=== PATIENT | female | born 1950 | race Caucasian/White ===

== ENCOUNTER → 2016-07-12 08:38 | Outpatient (CLI) | payer MEDICARE, OTHER ==
[2016-06-21 12:51] VITALS: BMI 21.8
[~2016-07-12 08:38] MED LIST: AMBIEN10 MG PO; AMITRIPTYLINE100 MG PO; CELEXA10 MG PO; ELAVIL75 MG PO; FIORINAL W/CODE1 CA1 PO; FIORINAL/CODEIN1 CAP; GABAPENTIN100 MG PO; INDERAL LA80 MG PO; NEURONTIN 300300 MG PO; NITROSTAT0.4 MG SL; NORCO 10/325 TA1 TA1 PO; PHENERGAN25 M1 PO; PLAVIX75 MG PO; PREVACID30 MG PO; SOMA350 MG PO; VALIUM5 MG PO; VITAMIN B-121000 MC3 INJ; ZESTRIL10 MG PO; ZOCOR40 MG PO; ZOFRAN4 MG PO
== END | disposition home or self-care (01) ==
LOC: D.CT 07-05 09:00
DX: I65.29 Occlusion and stenosis of unspecified carotid artery (principal)

== ENCOUNTER → 2016-09-10 16:31 | Outpatient (CLI) | payer MEDICARE, OTHER ==
[2016-06-21 12:51] VITALS: BMI 21.8
[2016-09-10 17:54] LABS: CHOL - HDL RATIO 3.4 ratio (2.3-4.1); LDL-HDL RATIO 1.8 ratio (1.5-3.5)
== END | disposition home or self-care (01) ==
LOC: D.LABREF 16:31
PROVIDERS: Internal Medicine Interventional Cardiology
DX: I25.10 Atherosclerotic heart disease of native coronary artery without angina pectoris (principal)

== ENCOUNTER → 2017-05-28 07:07 | Outpatient (CLI) | payer MEDICARE, OTHER ==
[~2017-05-28] VITALS: Ht 162.6 cm; Wt 49.5 kg
--- NOTE | ~2017-05-28 | HEMODYNAMI ---
PATIENT:ROCHELLE ALCANTARA MEDICAL RECORD: [id number] : 48 LOCATION:[facility] ADMISSION DATE: 05/28/17 Generatedon:05/28/201711:06 Patient name: ROCHELLE ALCANTARA Patient #: [id number] N: [id number] : 1950 Date of study: 05/28/2017 Page: Of Hemodynamic Procedure Report Patient Data Patient Demographics Procedure consent was obtained First Name: ROCHELLE Gender: Female Last Name: MARICRUZ : 1950 Middle Initial: A Age: 66 year(s) Patient #: [id number] Race: SSN: [id number] Additional ID: [id number] Contact details [address]: [address] [place] [address] State: [place] City: [place] Zip code: [address] Past Medical History Allergies Allergen Reaction Date Comments Reported Other allergy 06/20/2016 PCN,Imitrex Other allergy 06/21/2016 PCN, sumatriptan Other allergy 05/28/2017 PCN, Sumatriptan Admission Admission Data Admission Date: 05/28/2017 Admission Time: 7:07 Admit Source: Other Height (in.): 64 BSA: 1.52 (m2) Height (cm.): 162.56 BMI: 18.92 (kg/m2) Weight (lbs.): 110.23 Weight (kg.): 50 Lab Results Lab Result Date: 05/28/2017 Lab Result Time: 8:00 Biochemistry Name Units Result Min Max BUN mg/dl 10 --(-*--)-- 7 18 Creatinine mg/dl 0.9 --(-*--)-- 0.6 1.3 CBC Name Units Result Min Max Hematocrit % 39.1 -*(----)-- 42 54 Hemoglobin g/dl 12.6 -*(----)-- 13.5 17.5 Procedure Procedure Types Cath Procedure Diagnostic Procedure LHC LHC w/Coronaries PCI Procedure Coronary Stent Coronary Stent Initial Miscellaneous Procedures Moderate Sedation up to 30 minutes Procedure Description Procedure Date Procedure Date: 05/28/2017 Procedure Start Time: 10:31 Procedure End Time: 10:49 Procedure Staff Name Function Elsi Street RT Scrub Cheri Chin RN Nurse Jomar Beckman MD Performing Physician Vik Alaniz RT Monitor Procedure Data Cath Procedure Fluoroscopy Diagnostic fluoroscopy Total fluoroscopy Time: 4.5 time: 4.5 min min Diagnostic fluoroscopy Total fluoroscopy dose: 249 dose: 249 mGy mGy Contrast Material Contrast Material Type Amount (ml) Isovue 300 119 Entry Location Entry Primary Successful Side Size Upsize Upsize Entry Closure Succes sful Closure Location (Fr) 1 (Fr) 2 (Fr) Remarks Device Remarks Femoral Right 5 Fr 6 Fr Exoseal artery Short Estimated blood loss: 10 ml Diagnostic catheters Device Type Used For End Catheter Placement Cordis 5Fr Pigtail Procedure Catheter (MP) Cordis 5Fr JL 4.0 Procedure Catheter (MP) Cordis 5Fr 3DRC Catheter Procedure (MP) Procedure Complications No complications Procedure Medications Medication Administration Route Dosage Oxygen NC 2 l/min Lidocaine 2% added to field 20 Heparin Flush Bag added to field 2 bags (1000units/500ml NS) 0.9% NaCl I.V. 100 ml/hr Versed I.V. 1 mg Fentanyl I.V. 50 mcg Versed I.V. 1 mg Fentanyl I.V. 50 mcg Heparin Bolus I.V. 4000 units Versed I.V. 0.5 mg Fentanyl I.V. 25 mcg Plavix P.O. 75 mg Zofran I.V. 4 mg Hemodynamics Rest BSA: 1.52 (m2) HGB: 12.6 (g/dl) O2 Consumption: Estimated: 137.13 (ml/min) O2 Co nsumption indexed: Estimated:90.22 (ml/min/m) Heart Rate: 63 (bpm) Pressure Samples Time Site Value (mmHg) Purpose Heart Use Rate(bpm) 10:33 LV 100/11,21 Snapshot 59 10:33 LV 107/8,15 Snapshot 58 Snapshots Pre Cath Intra NCS Post Cath Vital Signs Time Heart Resp SPO2 etCO2 NIBP Rhythm Pain Sedation Rate (ipm) (%) (mmHg) (mmHg) Status Level (bpm) 10:25:22 60 17 100 35.9 127/57(89) NSR 0 (11) 10(A) , No pain 10:29:33 56 16 99 0 104/57(75) NSR 0 (11) 10(A) , No pain 10:33:41 58 18 98 35.2 103/46(67) NSR 0 (11) 9(A) , No pain 10:37:47 61 15 93 0 98/43(69) NSR 0 (11) 9(A) , No pain 10:41:51 61 15 94 0 100/44(82) NSR 0 (11) 9(A) , No pain 10:45:54 64 16 95 0 97/50(73) NSR 0 (11) 9(A) , No pain 10:49:40 63 16 95 0 108/49(81) NSR 0 (11) 10(A) , No pain Medications Time Medication Route Dose Verified Delivered Reason Notes Effectiveness by by 10:24:17 Oxygen NC 2 Jomar Buffie used for l/min Rk Chin RN procedure 10:24:22 Lidocaine 2% added 20ml Jomar Jomar for local to vial Rk Beckman MD anesthetic field 10:24:26 Heparin Flush added 2 Jomar Jomar used for Bag to bags Rk Beckman MD procedure (1000units/500ml field NS) 10:24:35 0.9% NaCl I.V. 100 Jomar Buffie Per physician ml/hr Rk Chin RN 10:26:49 Versed I.V. 1 mg Jomar Buffie for sedation Rk Chin RN 10:26:55 Fentanyl I.V. 50 Jomar Buffie for sedation mcg Rk Chin RN 10:30:13 Versed I.V. 1 mg Jomar Buffie for sedation Rk Chin RN 10:30:17 Fentanyl I.V. 50 Jomar Buffie for sedation mcg Rk Chin RN 10:39:17 Heparin Bolus I.V. 4000 Jomar Buffie for verifi ed units Rk Chin RN anticoagulation with dr beckman 10:43:21 Versed I.V. 0.5 Jomar Buffie for sedation mg Rk Chin RN 10:43:25 Fentanyl I.V. 25 Jomar Buffie for sedation mcg Rk Chin RN 10:48:49 Plavix P.O. 75 mg Jomar Alonzo for Rk Chin RN antiplatelet therapy 11:05:44 Zofran I.V. 4 mg Jomar Alonoz nausea Rk Chin independent marketing consultant Log Time Note 10:07:57 Informed consent obtained and on chart 10:08:00 Admit Source: Other 10:08:13 Diagnostic Cath status Elective 10:08:[address] RT(R) sent for patient. Start room use. 10:08:15 Time tracking: Regular hours 10:08:18 Plan of Care:Hemodynamics will remain stable., Cardiac rhythm will remain stable., Comfort level will be maintained., Respiratory function will remain adequate., Patient/ family verbilizes understanding of procedure., Procedure tolerated without complication., Recovers from procedure without complications.. 10:08:31 H&P Date Dictated: 05/16/2017 Within 30 days and on chart., H&P Addendum completed by physician on day of procedure. (MUST COMPLETE FOR ALL OUTPATIENTS). 10:09:15 Lab Result : Hemoglobin 12.6 g/dl 10::15 Lab Result : Hematocrit 39.1 % 10::15 Lab Result : BUN 10 mg/dl 10::15 Lab Result : Creatinine 0.9 mg/dl 10:09:24 Patient Weight : 110.23 lbs 10:09:27 Patient Height : 64 inches 10:13:02 Patient received from Pre/Post Procedure Room to CCL 2 Alert and oriented. Tansferred to table in Supine position. 10:13:03 Warm blankets applied, and jaswant hugger turned on for patient comfort. 10:13:04 Correct patient and procedure confirmed by team. 10:13:05 ECG and BP/O2 sat monitors applied to patient. 10:13:08 Pre-op teaching completed and patient verbalized understanding. 10:13:08 Pre-procedure instructions explained to patient. 10:13:09 Family in waiting room. 10:13:19 Patient NPO since Midnight. 10:13:41 Patient allergic to Other allergyPCN, Sumatriptan 10:13:43 Is the patient allergic to Iodine/contrast media? No. 10:17:55 Was the patient premedicated? No 10:17:56 Is patient on blood thinner?Yes 10:17:58 ACC The patient was administered the following blood thiners within the last 24 hours: ACCPlavix 10:18:00 Patient diabetic? No. 10:18:02 Previous problem with sedation/anesthesia? No ? 10:18:04 Snore? No 10:18:05 Sleep apnea? No 10:18:06 Deviated septum? No 10:18:08 Opens mouth fully? Yes 10:18:10 Sticks out tongue? Yes 10:18:16 Airway obstruction? Yes copd 10:23:35 Pre procedure: right dorsailis pedis pulse 2+ Normal; easily identifiable; not easily obliterated 10:23:38 Patient pain scale 0/10 ?. 10:23:46 IV patent on arrival in left hand with 0.9% NaCl at [facility]. 10:23:49 Lab results completed and on chart. 10:23:51 Right groin area was prepped with chlora-prep and draped in sterile fashion 10:23:53 Sharps counted by scrub and verified by R.N. 10:23:53 Alarms reviewed by R. N. 10:23:55 Use device set Femoral Dx 10:23:56 Tegaderm 4 x 4 opened to sterile field. 10:23:57 Acist Manifold opened to sterile field. 10:23:57 Acist Hand Control opened to sterile field. 10:23:58 Acist Syringe opened to sterile field. 10:23:59 Medline Cath Pack opened to sterile field. 10:23:59 Bag Decanter opened to sterile field. 10:24:00 [place] 260cm J .035 wire opened to sterile field. 10:24:00 Terumo 5Fr [place] Sheath opened to sterile field. 10:24:01 Diagnostic Infinity 5Fr Multipack catheter opened to sterile field. 10:24:05 Vital chart was started 10:24:06 Baseline sample Acquired. 10:24:10 Rhythm: sinus rhythm 10:24:11 Full Disclosure recording started 10:24:17 Oxygen 2 l/min NC was administered by Cheri Chin RN; used for procedure; 10:24:21 --------ALL STOP TIME OUT------ 10:24:21 Physician arrived 10:24:22 Final Timeout: patient, procedure, and site verified with staff and physician. All members of the team are in agreement. 10:24:22 Lidocaine 2% 20ml vial added to field was administered by Jomar Beckman MD; for local anesthetic; 10:24:23 Right groin site verified by team. 10::26 Physical assessment completed. ASA score P 2 - A patient with mild systemic disease as per Jomar Beckman MD. 10:24:26 Heparin Flush Bag (1000units/500ml NS) 2 bags added to field was administered by Jomar Beckman MD; used for procedure; ::28 Sedation plan: IV Moderate Sedation Medication:Versed, Fentanyl 10::35 0.9% NaCl 100 ml/hr I.V. was administered by Cheri Chin RN; Per physician; 10::49 Versed 1 mg I.V. was administered by Cheri Chin RN; for sedation; 10::55 Fentanyl 50 mcg I.V. was administered by Cheri Chin RN; for sedation; ::23 PERCUTANEOUS ENTRY 19GA needle opened to sterile field. 10:28:29 Zero performed for pressure channel P1 10:30:13 Versed 1 mg I.V. was administered by Cheri Chin RN; for sedation; 10:30:17 Fentanyl 50 mcg I.V. was administered by Cheri Chin RN; for sedation; 10:30:59 Procedure started. 10:31:02 Local anesthetic to right femoral artery with Lidocaine 2% by Jomar Beckman MD.INITIAL ACCESS ONLY 10:32:54 A 5 Fr sheath was inserted into the Right Femoral artery 10:33:00 A Cordis 5Fr Pigtail Catheter (MP) was advanced over the wire and used for Procedure. 10:33:23 Injector settings: Ml/sec: 10, Volume: 20, 10:33:25 LV gram done using JOYNER 10:33:55 EF : 60 % 10:33:56 Catheter exchanged over wire. 10:33:59 A Cordis 5Fr JL 4.0 Catheter (MP) was advanced over the wire and used for Procedure. 10:34:43 LCA angiography performed. 10:35:40 Merit BasixCompak Inflation Kit opened to sterile field. 10:35:40 Terumo 6Fr [place] Sheath opened to sterile field. 10:35:53 Catheter exchanged over wire. 10:35:56 A Cordis 5Fr 3DRC Catheter (MP) was advanced over the wire and used for Procedure. 10:36:06 RCA angiography performed. 10:36:23 RCA angiography performed. 10:37:03 Right carotid angiography performed. 10:37:04 Left carotid angiography performed. 10:37:22 Left subclavian angiography performed 10:37:32 Medtronic Launcher 6Fr AR 1.0 guide catheter opened to sterile field. 10:39:17 Heparin Bolus 4000 units I.V. was administered by Cheri Chin RN; for anticoagulation; verified with dr beckman 10:40:02 Catheter removed. 10:40:12 Medtronic Launcher 6Fr AR 1.0 SH guide catheter opened to sterile field. 10:40:30 Sheath upsized to a 6 Fr Short. 10:40:45 Mcgraw Whisper 190cm wire opened to sterile field. 10:40:58 6 Fr ar 1 sh guide catheter was inserted over the wire 10:41:02 whisper wire advanced. 10:41:03 Wire advanced across lesion. 10:41:23 Inflation Number: 1 A [place] RX 2.5 x 34 stent was prepped and advanced across the Mid RCA. The stent was deployed at 17 JUAN for 0:10 (min:sec). 10:41:34 Inflation number: 2 The stent balloon was then re-inflated across the Mid RCA to 21 JUAN for 0:10 (min:sec). 10:41:44 Inflation number: 3 The stent balloon was then re-inflated across the Mid RCA to 19 JUAN for 0:10 (min:sec). 10:42:02 Stent catheter was removed intact over wire. 10:43:21 Versed 0.5 mg I.V. was administered by Cheri Chin RN; for sedation; 10:43:25 Fentanyl 25 mcg I.V. was administered by Cheri Chin RN; for sedation; 10:44:18 Inflation Number: 1 A [place] RX 2.5 x 22 stent was prepped and advanced across the Prox RCA. The stent was deployed at 21 JUAN for 0:10 (min:sec). 10:44:30 Wire removed. 10:44:30 Stent catheter was removed intact over wire. 10:44:34 Guide catheter removed. 10:44:42 Cordis 6Fr Exoseal opened to sterile field. 10:45:06 Sheath removed intact; hemostasis achieved with Exoseal to the Right Femoral artery. 10:45:08 Procedure ended.(Physican Out) 10:47:05 Fluoroscopy time 04.50 minutes. 10:47:13 Fluoroscopy dose: 249 mGy 10:47:13 Flurop Dose total: 249 10:47:23 Contrast amount:Isovue 300 119ml. 10:47:25 Sharps counted by scrub and verified by R.N. 10:47:26 Insertion/operative site no bleeding no hematoma. 10:47:28 Post-op/insertion site Right Femoral artery dressed using a 4 x 4 and Tegaderm. 10:47:31 Post right femoral artery:stable, soft, clean and dry 10:47:33 Post Procedure Pulses reassessed and unchanged 10:47:34 Post-procedure physical assessment completed. ASA score P 2 - A patient with mild systemic disease as per Jomar Beckman MD. 10:47:37 Post procedure rhythm: unchanged. 10:47:41 Estimated blood loss: 10 ml 10:47:42 Patient needs reinforcement of post procedure teaching. 10:47:42 Post procedure instruction explained to patient.Patient verbalizes understanding. 10:48:02 Procedure type changed to Cath procedure, Diagnostic procedure, LHC, LHC w/Coronaries, PCI procedure, Coronary Stent, Coronary Stent Initial, Miscellaneous Procedures, Moderate Sedation up to 30 minutes 10:48:49 Plavix 75 mg P.O. was administered by Cheri Chin RN; for antiplatelet therapy; 10:48:55 Procedure and supply charges have been captured, reviewed, submitted and are correct. 10:49:01 Procedure Complication : No complications 10:49:03 Vital chart was stopped 10:49:04 See physician's report for complete and final results. 10:49:05 Report given to Pre/Post Procedure Room. 10:49:08 Patient transfered to Pre/Post Procedure Room with Stretcher. 10:49:13 Full Disclosure recording stopped 10:49:13 Procedure ended. 10:50:03 End room use (Document Last) 11:05:44 Zofran 4 mg I.V. was administered by Cheri Chin RN; nausea; Intervention Summary Intervention Notes Time ActionType Lesion and Equipment Action# Pressure Duration Attributes Used 10:41:23 Place stent Mid RCA [place] RX 1 17 00:10 2.5 x 34 stent 10:41:34 Reinflate Mid RCA [place] RX 2 21 00:10 stent 2.5 x 34 balloon stent 10:41:44 Reinflate Mid RCA [place] RX 3 19 00:10 stent 2.5 x 34 balloon stent 10:44:18 Place stent Prox RCA Petey RX 1 21 00:10 2.5 x 22 stent Device Usage Item Name Manufacture Quantity Catalog Hospital Part Current Mini [facility] Lot# / Number Charge Number Stock Stock Serial# Code Tegaderm 4 x 3M 1 [id number] 621381 [id number] 5 4 Acist Hand Acist 1 41415 365852 236085 364349 5 FUELUP Acist Acist 1 13120 685661 206739 480072 5 [employer] GuestCentric Systems Acist Acist 1 05978 611715 682567 671705 20 Syringe Supersonic Bag Decanter Microtek 1 2002S 734611 50951 307156 5 GT [employer] Inc. Medline Cath Cardinal 1 [id number] 220831 92295 218283 5 Pack Health Terumo 5Fr Terumo 1 [id number] 396350 478688 494771 [address] [place] [address] [facility] 1 476398 348176 432328 315525 30 260cm J .035 wire Diagnostic Cardinal 1 [id number] 436536 53689 170713 30 Infinity 5Fr Health Multipack catheter PERCUTANEOUS [facility] 1 [id number] 841981 475148 5 ENTRY 19GA needle Cordis 5Fr Cardinal 1 [id number] 5 Pigtail Health Catheter (MP) Cordis 5Fr Cardinal 1 216556 5 JL 4.0 Health Catheter (MP) Terumo 6Fr Terumo 1 [id number] 981640 019759 274041 40 [place] Sheath Merit Merit 1 [id number] 218776 639139 497307 15 [employer] Hy[employer] Medical Inflation Kit Cordis 5Fr Cardinal 1 291162 5 3DRC Health Catheter (MP) Medtronic Medtronic 1 [id number] 827025 69942 661749 1 Launcher 6Fr AR 1.0 guide catheter Medtronic Medtronic 1 [id number] 577637 43896 956774 1 Launcher 6Fr AR 1.0 SH guide catheter Mcgraw Mcgraw 1 [id number] 437926 181566 105896 5 Whisper Vascular 190cm wire [place] RX 2.5 Medtronic 1 [id number] 473101 3418508 219981 5 [id number] x 34 stent [place] RX 2.5 Medtronic 1 [id number] 708075 7670877 985651 5 [id number] x 22 stent Cordis 6Fr Cardinal 1 [id number] 244928 026881 996635 10 [facility] Signature Audit [place] Stage Time Signature Unsigned Intra-Procedure 05/28/2017 Vik Alaniz RT(R) 10:52:13 AM RT(R) 05/28/2017 10:53:12 AM Intra-Procedure 05/28/2017 Vik Alaniz RT(R) 10:54:43 AM RT(R) 05/28/2017 11:05:21 AM Intra-Procedure 05/28/2017 Vik Alaniz 11:05:58 AM RT(R) Signatures Monitor : Vik Alaniz RT Signature : Date : Time : [id number] [place] [address]
[~2017-05-28 07:07] MED LIST changes: +BACLOFEN10 MG PO; +BAYER CHEWABLE81 MG PO; +K-DUR20 MEQ PO; +LOPRESSOR25 MG PO
[2017-05-28 08:05] LABS: BASOPHILS 0.2 % (0-2); EOSINOPHILS 3.6 % (0-7); HEMATOCRIT 39.1 % (36.0-48.0); HEMOGLOBIN 12.6 g/dL (12-16); LYMPHOCYTES 37.7 % (15-50); MCH 28.5 pg (26.0-34.0); MCHC 32.2 g/dL (31.0-37.0); MCV 88.5 fL (80.0-100.0); MEAN PLATELET VOLUME 11.1 fL (7.4-10.4); MONOCYTES 8.5 % (2-11); RBC 4.42 10x6/uL (4.00-5.40); RDW 15.7 % (11.5-14.5); WBC 5.5 10x3/uL (4.8-10.8)
[2017-05-28 08:09] LABS: PLATELET COUNT 191 10x3/uL (130-400)
[2017-05-28 08:13] VITALS: BP 160/56; Ht 162.6 cm; Wt 49.5 kg
[2017-05-28 08:36] LABS: ANION GAP 14.1 mmol/L (8-16); CALCIUM 9.1 mg/dL (8.5-10.1); CARBON DIOXIDE 24.6 mmol/L (21.0-32.0); CREATININE - SERUM 0.9 mg/dL (0.6-1.3); POTASSIUM - SERUM 3.7 mmol/L (3.5-5.1)
--- NOTE | 2017-05-28 11:00 | NUR ---
1100 RECIEVED TO ROOM VIA STRETCHER FROM CONSULTING PSYCHOLOGIST WITH REPORTS OF 2 STENTS TO THE RCA. 6 FR EXOSEAL R/GROIN CDI NO BLEEDING NO HEMATOMA NOTED. PULSES PALPABLE WITH CHEST PAIN DENIED. PATIENT DENIED NAUSEA AT THIS TIME WITH ZOFRAN GIVEN IN CONSULTING PSYCHOLOGIST. VSS WILL MONITOR
--- NOTE | 2017-05-28 11:18 | NUR ---
RESTING QUIETLY WITH EYES CLOSED. RESPIRATIONS EVEN AND UNLABORED ON ROOM AIR. HR 60 BP121/59 NO DISTRESS NOTED. 6 FR EXOSEAL R/GROIN CDI NO BLEEDING NO HEMATOMA NOTED
--- NOTE | 2017-05-28 11:45 | NUR ---
1145 RESTING QUIETLY WITH EYES CLOSED. 6 FR EXOSEAL R/GROIN CDI NO BLEEDING NO HEMATOMA NOTED. FAMILY AT SIDE WITH DR SERRANO PRESENT IN ROOM. 1200 PATIENT CONTINUES TO SLEEP WITH NO DISTRESS NOTED R/GROIN REMAINS CDI
--- NOTE | 2017-05-28 12:15 | NUR ---
1215 R/GROIN REMAINS STABLE NO BLEEDING NO HEMATOMA NOTED. PATIENT DENIED PAIN OR NEEDS TOLERATING SIPS OF WATER WITH NAUSEA DENIED.
--- NOTE | 2017-05-28 12:45 | NUR ---
1245 R/GROIN CDI NO BLEEDING NO HEMATOMA NOTED. VSS WITH CHEST PAIN DENIED 1315 PATIENT SLEEPING QUIETLY NO DISTRESS VSS
--- NOTE | 2017-05-28 13:45 | NUR ---
NO CHANGE IN ASSESSMENT PATIENT CONTINUES TO SLEEP NO DISTRESS
--- NOTE | 2017-05-28 14:28 | NUR ---
L/GROIN REMAINS STABLE NO BLEEDING NO HEMATOMA NOTED. VSS AND CHEST PAIN IS DENIED. REPOSITIONED PATIENT TO SITTING WITH HOB UP 30 DEGREES SANDWICH AND SODA TO BEDSIDE
--- NOTE | 2017-05-28 14:55 | NUR ---
VERBAL AND WRITTEN DISCHARGE GONE OVER WITH PATIENT AND SPOUSE.R/GROIN REMAINS STABLE WITH PAIN DENIED PIV REMOVED WITH PRESSURE HELD. PATIENT UP TO GET DRESSED FOR DISCHARGE HOME
--- NOTE | 2017-05-28 14:57 | NUR ---
PATIENT TRANSPORTED OUT TO PARKING VIA FOR TO DRIVE HOME CHEST PAIN DENIED AND R/GROIN CDI
--- NOTE | 2017-06-03 09:02 | OP ---
PATIENT NAME: ROCHELLE ALCANTARA MEDICAL RECORD: [id number] :48 LOCATION:D.CAT ADMISSION DATE: SURGEON: SAM SERRANO MD DATE OF OPERATION: 05/28/2017 PROCEDURES: 1. PTCA stent RCA. 2. Left heart catheterization. 3. Selective coronary angiography. 4. Left ventriculogram. 5. Four-vessel carotid and vertebral angiography. INDICATION: Angina, coronary artery disease, carotid vascular disease, syncope. PROCEDURE IN DETAIL: After informed consent was obtained and after detailed explanation of risks, benefits as well as alternative therapies, the patient elected to proceed with angiogram and angioplasty. The right femoral area was prepped and draped in normal sterile fashion. The right femoral artery was cannulated via modified Seldinger technique with placement of 6-Frisian sheath. All catheters exchanged through this sheath. FINDINGS: Left ventriculogram was performed in standard 30-degree JOYNER view, reveals good wall motion throughout all segments. Overall ejection fraction normal, estimated at 60%. SELECTIVE CORONARY ANGIOGRAPHY: 1. Left main showed no significant angiographic disease. 2. Left anterior descending has moderate irregularities, but no flow-limiting stenosis. 3. Left circumflex has previously placed stents, these were overall widely patent with no significant restenosis. No disease elsewhere at the left circumflex or its branches. 4. Right coronary has previously placed stents. There are multiple areas of 80% in-stent restenosis. FOUR-VESSEL CAROTID AND VERTEBRAL ANGIOGRAPHY: There was a subselection of each subclavian as well as the left carotid findings: RIGHT SIDE: The common internal and external carotids have mild plaquing, none greater than 20%, no flow-limiting stenosis. Vertebral arteries devoid of disease. LEFT SYSTEM: The common internal and external carotids have mild plaquing, none greater than 20%. Vertebral artery is small, but no significant disease. PTCA STENT OF THE RCA: The stent used 2.5 x 34 and 2.5 x 22, both [place] stents. Result was 0% residual stenosis. OVERALL IMPRESSION: Successful percutaneous transluminal coronary angioplasty stent of the right coronary artery going from multiple areas of 80% in-stent restenosis to 0% residual stenosis. TRANSINT:[id number] Voice Confirmation ID: [id number] DOCUMENT ID: [id number] OPERATIVE REPORT [id number] MARICRUZ,PHYLIS SAM SERRANO MD at 0902 CC: [id number] DICTATION DATE: 05/28/17 1054 METAL BENDING MACHINE OPERATOR: 05/28/17 1145 DEP CLI 05/28/17 [id number] [place] [address]
== END | disposition home or self-care (01) ==
LOC: D.CATH 07:07
PROVIDERS: Internal Medicine Interventional Cardiology
DX: I25.119 Atherosclerotic heart disease of native coronary artery with unspecified angina pectoris (principal); I65.29 Occlusion and stenosis of unspecified carotid artery; T82.855A Stenosis of coronary artery stent, initial encounter; Z01.812 Encounter for preprocedural laboratory examination
CPT/HCPCS: 93458; 36222; 36225; C9600

== ENCOUNTER 2018-09-10 08:11 | Outpatient (CLI) | payer MEDICARE, OTHER ==
[~2018-09-10] VITALS: Ht 162.6 cm; Wt 49.5 kg
--- NOTE | ~2018-09-10 | HEMODYNAMI ---
PATIENT:ROCHELLE ALCANTARA MEDICAL RECORD: [id number] : 48 LOCATION:[facility] ADMISSION DATE: 09/10/18 Generatedon:09/10/201810:25 Patient name: ROCHELLE ALCANTARA Patient #: [id number] N: [id number] : 1950 Date of study: 09/10/2018 Page: Of Hemodynamic Procedure Report Patient Data Patient Demographics Procedure consent was obtained First Name: ROCHELLE Gender: Female Last Name: MARICRUZ : 1950 Middle Initial: A Age: 67 year(s) Patient #: [id number] Race: SSN: [id number] Additional ID: [id number] Contact details Address: [address] [place] [address] State: [place] City: [place] Zip code: [address] Past Medical History Allergies Allergen Reaction Date Comments Reported Other allergy 06/20/2016 PCN,Imitrex Other allergy 06/21/2016 PCN, sumatriptan Other allergy 05/28/2017 PCN, Sumatriptan Penicillins 09/10/2018 Other allergy 09/10/2018 imitrex Admission Admission Data Admission Date: 09/10/2018 Admission Time: 8:11 Height (in.): 64 BSA: 1.51 (m2) Height (cm.): 162.56 BMI: 18.73 (kg/m2) Weight (lbs.): 109.13 Weight (kg.): 49.5 Procedure Procedure Types Cath Procedure Diagnostic Procedure C LH w/Coronaries FFR/IVUS Intra-Coronary IVUS Initial Sedation Charges Moderate Sedation up to 15 minutes PCI Procedure Coronary Stent Coronary Stent Initial Peripheral Cath Diagnostic Procedure Marine Pilot Peripheral Procedures Four Vessel Arteriogram Procedure Description Procedure Date Procedure Date: 09/10/2018 Procedure Start Time: 10:02 Procedure End Time: 10:24 Procedure Staff Name Function Jomar Beckman MD Performing Physician Mary Jane Byrd RT Monitor Brad Pichardo RN Nurse Milana Hampton RT Scrub Procedure Data Cath Procedure Fluoroscopy Diagnostic fluoroscopy Total fluoroscopy Time: 5.3 time: 5.3 min min Diagnostic fluoroscopy Total fluoroscopy dose: 345 dose: 345 mGy mGy Contrast Material Contrast Material Type Amount (ml) Isovue 300 103 Entry Location Entry Primary Successful Side Size Upsize Upsize Entry Closure Succes sful Closure Location (Fr) 1 (Fr) 2 (Fr) Remarks Device Remarks Femoral Right 5 Fr 6 Fr Exoseal artery Short Estimated blood loss: 10 ml Diagnostic catheters Device Type Used For End Catheter Placement MULTIPACK Pigtail 5 Fr LV Angiography catheter MULTIPACK JL 4.0 5Fr Left Coronary catheter Angiography MULTIPACK 3DRC 5Fr Cervical carotid catheter (common) arteriography MULTIPACK 3DRC 5Fr Cervical carotid catheter (common) arteriography MULTIPACK 3DRC 5Fr Right Coronary catheter Angiography Procedure Complications No complications Procedure Medications Medication Administration Route Dosage 0.9% NaCl I.V. 100 ml/hr Oxygen etCO2 Nasal cannula 2 l/min Heparin Flush Bag added to field 2 bags (1000units/500ml NS) Lidocaine 2% added to field 20 Versed I.V. 2 mg Fentanyl I.V. 100 mcg Versed I.V. 1 mg Fentanyl I.V. 25 mcg Heparin Bolus I.V. 4000 units Hemodynamics Rest BSA: 1.51 (m2) O2 Consumption: Estimated: 146.51 (ml/min) O2 Consumption indexed : Estimated:97.03 (ml/min/m) Heart Rate: 82 (bpm) Snapshots Pre Cath Intra NCS Post Cath Vital Signs Time Heart Resp SPO2 etCO2 NIBP (mmHg) Rhythm Pain Sedation Rate (ipm) (%) (mmHg) Status Level (bpm) 9:31:05 80 24 100 33.5 126/63(90) NSR 0 (11) 10(A) , No pain 9:35:15 78 13 100 36.6 117/55(73) NSR 0 (11) 10(A) , No pain 9:39:21 77 13 100 9.9 120/59(81) NSR 0 (11) 10(A) , No pain 9:43:31 80 14 99 27.4 120/54(76) NSR 0 (11) 10(A) , No pain 9:47:36 80 13 98 29.7 124/65(88) NSR 0 (11) 10(A) , No pain 9:51:44 81 15 99 33.5 129/57(82) NSR 0 (11) 10(A) , No pain 9:55:54 79 15 99 32.8 118/64(88) NSR 0 (11) 10(A) , No pain 10:00:00 80 16 99 32.8 128/60(88) NSR 0 (11) 10(A) , No pain 10:04:08 79 24 99 33.5 119/65(100) NSR 0 (11) 10(A) , No pain 10:08:15 80 25 97 38.1 122/56(94) NSR 0 (11) 9(A) , No pain 10:12:23 80 12 96 22.1 116/59(94) NSR 0 (11) 9(A) , No pain 10:16:29 86 12 92 0 130/63(96) NSR 0 (11) 10(A) , No pain 10:20:35 87 10 99 36.6 144/73(114) NSR 0 (11) 10(A) , No pain Medications Time Medication Route Dose Verified Delivered Reason Notes Effectiveness by by 9:29:15 0.9% NaCl I.V. 100 Brad Brad Per physician ml/hr Marino Pichardo RN RN 9:29:25 Oxygen etCO2 2 Bard Brad for low 02 sats Nasal l/min Marino Pichardo cannula RN RN 9:29:37 Heparin Flush added 2 Brad Brad used for Bag to bags Marino Pichardo procedure (1000units/500ml field RN RN NS) 9:29:48 Lidocaine 2% added 20ml Brad Brad for local to vial Marino Pichardo anesthetic RN RN 9:58:13 Versed I.V. 2 mg Brad Brad for sedation Marino Pichardo RN RN 9:58:21 Fentanyl I.V. 100 Brad Brad for sedation mcg Marino Pichardo RN RN 10:04:10 Versed I.V. 1 mg Brad Brad for sedation Marino Pichardo RN RN 10:04:17 Fentanyl I.V. 25 Brad Brad for sedation mcg Marino Pichardo RN RN 10:12:34 Heparin Bolus I.V. 4000 Brad Brad for units Marino Pichardo anticoagulation RN patient services coordinator Log Time Note 9:10:51 Patient Weight : 109.13 lbs 9:10:58 Patient Height : 64 inches 9:16:28 rBad Pichardo RN sent for patient. Start room use. 9:18:59 Time tracking: Regular hours (M-F 7:00 - 5:00) 9:19:04 Plan of Care:Hemodynamics will remain stable., Cardiac rhythm will remain stable., Comfort level will be maintained., Respiratory function will remain adequate., Patient/ family verbilizes understanding of procedure., Procedure tolerated without complication., Recovers from procedure without complications.. 9:19:10 Patient received from Pre/Post Procedure Room to CCL 2 Alert and oriented. Tansferred to table in Supine position. 9:19:12 Warm blankets applied, and jaswant hugger turned on for patient comfort. 9:19:12 Correct patient and procedure confirmed by team. 9:19:13 Signed procedure consent form obtained from patient. 9:19:14 ECG and BP/O2 sat monitors applied to patient. 9:19:15 Full Disclosure recording started 9:23:10 Use device set Femoral Dx 9:23:11 ACIST Syringe (08012) opened to sterile field. 9:23:11 Bag Decanter (2002S) opened to sterile field. 9:23:12 Medline Cath Pack ([id number]) opened to sterile field. 9:23:12 DIAGNOSTIC WIRE .035 260cm J wire (716027) opened to sterile field. 9:23:13 ACIST Hand Control (69549) opened to sterile field. 9:23:14 ACIST Manifold (66741) opened to sterile field. 9:23:14 DIAGNOSTIC Multipack 5Fr catheter set (ZV9720) opened to sterile field. 9:23:15 Tegaderm 4 x 4 (1626W) opened to sterile field. 9:23:16 SHEATH 5FR Thornton (EOF634) opened to sterile field. 9:23:28 Rhythm: sinus rhythm 9:23:39 H&P Date Dictated: 09/04/2018 Within 30 days and on chart., H&P Addendum completed by physician on day of procedure. (MUST COMPLETE FOR ALL OUTPATIENTS). 9:23:48 Pre-procedure instructions explained to patient. 9:23:48 Pre-op teaching completed and patient verbalized understanding. 9:23:50 Family in waiting room. 9:23:53 Patient NPO since Midnight. 9:23:59 Patient allergic to Penicillins 9:24:12 Patient allergic to Other allergyimitrex 9:24:19 Is the patient allergic to Iodine/contrast media? No. 9:24:21 Is patient on blood thinner?Yes 9:24:23 ACC The patient was administered the following blood thiners within the last 24 hours: ACCPlavix 9:24:25 Patient diabetic? No. 9:24:42 Previous problem with sedation/anesthesia? No ? 9:24:43 Snore? Yes 9:24:44 Sleep apnea? No 9:24:45 Deviated septum? No 9:24:46 Opens mouth fully? Yes 9:24:46 Sticks out tongue? Yes 9:24:51 Airway obstruction? Yes COPD 9:24:54 Dentures? Yes IN 9:24:58 Pre procedure: right dorsailis pedis pulse 2+ Normal; easily identifiable; not easily obliterated 9:25:49 Patient pain scale 0/10 ?. 9:26:00 IV patent on arrival in left forearm with 0.9% NaCl at [facility]. 9:26:08 Lab results completed and on chart. 9:26:10 Right groin area was prepped with chlora-prep and draped in sterile fashion 9:26:11 Alarms reviewed by R. N. 9:26:11 Sharps counted by scrub and verified by R.N. 9:26:20 Baseline sample Acquired. 9:29:15 0.9% NaCl 100 ml/hr I.V. was administered by Brad Pichardo RN; Per physician; 9:29:25 Oxygen 2 l/min etCO2 Nasal cannula was administered by Brad Pichardo RN; for low 02 sats; 9:29:37 Heparin Flush Bag (1000units/500ml NS) 2 bags added to field was administered by Brad Pichardo RN; used for procedure; 9:29:48 Lidocaine 2% 20ml vial added to field was administered by Brad Pichardo RN; for local anesthetic; 9:29:52 Vital chart was started 9:56:39 Final Timeout: patient, procedure, and site verified with staff and physician. All members of the team are in agreement. 9:56:43 Right groin site verified by team. 9:56:46 Maximum allowable contrast dose 38.2ml. Physician notified. 9:56:50 Fire Safety Assessment: A--An alcohol-based skin anteseptic being used preoperatively., C--Open oxygen or nitrous oxide is being used., D--An ESU, laser, or fiber-optic light is being used. 9:56:56 Physical assessment completed. ASA score P 2 - A patient with mild systemic disease as per Jomar Beckman MD. 9:56:59 Sedation plan: IV Moderate Sedation Medication:Versed, Fentanyl 9:58:13 Versed 2 mg I.V. was administered by Brad Pichardo RN; for sedation; 9:58:21 Fentanyl 100 mcg I.V. was administered by Brad Pichardo RN; for sedation; 10:02:45 Procedure started. 10:02:48 Local anesthetic to right femoral artery with Lidocaine 2% by Jomar Beckman MD.INITIAL ACCESS ONLY 10:02:55 A 5 Fr sheath was inserted into the Right Femoral artery 10:03:46 A MULTIPACK Pigtail 5 Fr catheter was advanced over the wire and used for LV Angiography. 10:04:07 LV gram done using JOYNER 10:04:10 Versed 1 mg I.V. was administered by Brad Pichardo RN; for sedation; 10:04:10 Injector settings: Ml/sec: 10, Volume: 20, 10:04:15 EF : 60 % 10:04:16 Catheter removed. 10:04:17 Fentanyl 25 mcg I.V. was administered by Brad Pichardo RN; for sedation; 10:04:23 A MULTIPACK JL 4.0 5Fr catheter was advanced over the wire and used for Left Coronary Angiography. 10:05:41 Catheter removed. 10:06:19 A MULTIPACK 3DRC 5Fr catheter was advanced over the wire and used for Cervical carotid (common) arteriography. RIGHT 10:06:52 A MULTIPACK 3DRC 5Fr catheter was advanced over the wire and used for Cervical carotid (common) arteriography.LEFT 10:08:05 A MULTIPACK 3DRC 5Fr catheter was advanced over the wire and used for Right Coronary Angiography. 10:08:23 Catheter removed. 10:08:34 Use device set [facility] PCI 10:08:35 SHEATH 6FR Thornton (EFW988) opened to sterile field. 10:08:38 INFLATOR Merit BasixCompak (OX2228) opened to sterile field. 10:08:45 CHOICE PT Extra Support 182cm wire ([id number]) opened to sterile field. 10:08:58 GUIDE 6FR 3DRC SH catheter ([id number]) opened to sterile field. 10:09:17 Sheath upsized to a 6 Fr Short. 10:09:57 6 Fr 3DRC SH guide catheter was inserted over the wire 10:10:30 CHOICE PT ES wire advanced. 10:10:51 IVUS catheter advanced over wire. 10:11:54 IVUS pass to RCA lesion performed. 10:11:55 IVUS catheter removed over wire. 10:12:34 Heparin Bolus 4000 units I.V. was administered by Brad Pichardo RN; for anticoagulation; 10:13:39 Inflate balloon Inflation number: 1 A EUPHORA 3.5 x 30 Balloon ([id number]) was prepped and advanced across the Mid RCA, then inflated to 21 JUAN for 0:08 (min:sec). 10:13:53 Inflation number: 2 The EUPHORA 3.5 x 30 Balloon ([id number]) was reinflated across the Mid RCA, to 21 JUAN for 0:07 (min:sec). 10:14:05 Inflation number: 3 The EUPHORA 3.5 x 30 Balloon ([id number]) was reinflated across the Mid RCA, to 21 JUAN for 0:06 (min:sec). 10:14:40 Balloon removed over the wire. 10:15:50 Place stent Inflation Number: 4 A INTEGRITY RX 3.0 x 12 stent ([id number]) was prepped and advanced across the Mid RCA. The stent was deployed at 15 JUAN for 0:06 (min:sec). 10:16:03 Stent catheter was removed intact over wire. 10:16:03 Wire removed. 10:16:03 Guide catheter removed. 10:17:05 Sheath removed intact; hemostasis achieved with Exoseal to the Right Femoral artery. 10:17:13 Procedure ended.(Physican Out) 10:17:29 Fluoroscopy time 05.30 minutes. 10:17:32 Flurop Dose total: 345 10:17:32 Fluoroscopy dose: 345 mGy 10:17:35 Contrast amount:Isovue 300 103ml. 10:17:37 Sharps counted by scrub and verified by R.N. 10:17:39 Insertion/operative site no bleeding no hematoma. 10:17:42 Post-op/insertion site Right Femoral artery dressed using a 4 x 4 and Tegaderm. 10:17:49 Post right femoral artery:stable, clean and dry 10:17:51 Post Procedure Pulses reassessed and unchanged 10:17:58 Post-procedure physical assessment completed. ASA score P 2 - A patient with mild systemic disease as per Jomar Beckman MD. 10:18:00 Post procedure rhythm: unchanged. 10:18:04 Estimated blood loss: 10 ml 10:18:06 Post procedure instruction explained to patient.Patient verbalizes understanding. 10:18:07 Patient needs reinforcement of post procedure teaching. 10:18:13 Procedure Complication : No complications 10:18:42 See physician's report for complete and final results. 10:18:53 EXOSEAL 6Fr (EX600) opened to sterile field. 10:19:31 Procedure type changed to Cath procedure, Diagnostic procedure, LHC, LHC w/Coronaries, FFR/IVUS, Intra-Coronary IVUS Initial, Sedation Charges, Moderate Sedation up to 15 minutes, PCI procedure, Coronary Stent, Coronary Stent Initial, Peripheral Cath Diagnostic Procedure, Marine Pilot Peripheral Procedures, Four Vessel Arteriogram 10:19:54 Procedure and supply charges have been captured, reviewed, submitted and are correct. 10:22:30 Vital chart was stopped 10:22:32 Report given to Pre/Post Procedure Room. 10:22:34 Patient transfered to Pre/Post Procedure Room with Stretcher. 10:24:37 Procedure ended. 10:24:37 Full Disclosure recording stopped 10:24:41 End room use (Document Last) Intervention Summary Intervention Notes Time ActionType Lesion and Equipment Action# Pressure Duration Attributes Used 10:13:39 Inflate Mid RCA EUPHORA 3.5 1 21 00:08 balloon x 30 Balloon ([id number]) 10:13:53 Reinflate Mid RCA EUPHORA 3.5 2 21 00:07 balloon x 30 Balloon ([id number]) 10:14:05 Reinflate Mid RCA EUPHORA 3.5 3 21 00:06 balloon x 30 Balloon ([id number]) 10:15:50 Place stent Mid RCA INTEGRITY RX 4 15 00:06 3.0 x 12 stent ([id number]) Device Usage Item Name Manufacture Quantity Catalog Number Hospital Part Current Mini mal Lot# / Charge Number Stock Stock Serial# Code ACIST Acist 1 58295 599275 007991 735928 20 Syringe Medical (06036) Systems Inc Bag Decanter Microtek 1 341616 45141 494425 5 () Medical Inc. Medline Cath Medline 1 [id number] 561604 81611 852640 5 Pack ([id number]) DIAGNOSTIC [facility] [place] 1 978516 886763 869933 186004 30 WIRE .035 260cm J wire (361113) ACIST Hand Acist 1 05920 807617 680284 694596 5 Control Medical (43836) Systems Inc ACIST Acist 1 74176 293368 286523 533925 5 Manifold Medical (05845) Systems Inc DIAGNOSTIC Cardinal 1 CD4337 046524 89983 120962 30 Multipack Health 5Fr catheter set (FK3657) Tegaderm 4 x 3M 1 1626W 355965 270958 265347 5 4 (1626W) SHEATH 5FR Terumo 1 VFT804 005586 433293 692940 5 Thornton (MPS747) MULTIPACK Cardinal 1 121939 5 Pigtail 5 Fr Health catheter MULTIPACK JL Cardinal 1 646747 5 4.0 5Fr Health catheter MULTIPACK Cardinal 1 700256 5 3DRC 5Fr Health catheter SHEATH 6FR Terumo 1 JUW686 274516 699840 737428 40 Thornton (UFM027) INFLATOR [facility] 1 VN6906 032861 858210 399847 15 [facility] Medical BasixCompak (CI9934) CHOICE PT Glouster 1 [id number] 818126 511416 257225 5 Extra Scientific Support 182cm wire ([id number]) GUIDE 6FR Medtronic 1 [id number] 389502 958901 650618 1 3DRC SH catheter ([id number]) EUPHORA 3.5 Medtronic 1 [id number] 691373 955391 386561 5 [id number] x 30 Balloon ([id number]) INTEGRITY RX Medtronic 1 [id number] 041238 818221 476890 5 [id number] 3.0 x 12 stent ([id number]) EXOSEAL 6Fr Cardinal 1 EX600 547008 401457 492216 10 (EX600) Health Signature Audit Calvin Stage Time Signature Unsigned Intra-Procedure 09/10/2018 Mary Jane 10:24:53 AM Counts RT(R) Signatures Monitor : Mary Jane Signature : Counts RT Date : Time : [id number] [place] [address]
[2018-09-10] MEDS ORDERED: INDERAL LA60 MG PO (08:33)
[2018-09-10] MEDS ORDERED: PROZAC40 MG PO (08:34)
[2018-09-10] MEDS ORDERED: ATIVAN0.5 MG PO (08:35)
[2018-09-10 08:40] VITALS: Ht 162.6 cm; Wt 49.5 kg
[2018-09-10 09:04] LABS: BASOPHILS 0.2 % (0-2); EOSINOPHILS 2.9 % (0-7); HEMOGLOBIN 11.8 g/dL (12-16); IMMATURE GRANULOCYTES 0.2 % (0-5); LYMPHOCYTES 34.4 % (15-50); MCH 29.9 pg (26.0-34.0); MCHC 32.8 g/dL (31.0-37.0); MCV 91.4 fL (80.0-100.0); MEAN PLATELET VOLUME 10.3 fL (7.4-10.4); MONOCYTES 9.2 % (2-11); NEUTROPHILS 53.1 % (40-80); PLATELET COUNT 182 10x3/uL (130-400); RBC 3.94 10x6/uL (4.00-5.40); RDW 13.7 % (11.5-14.5); WBC 4.8 10x3/uL (4.8-10.8)
[2018-09-10 09:13] LABS: CALCIUM 8.1 mg/dL (8.5-10.1); CARBON DIOXIDE 26.4 mmol/L (21.0-32.0); CREATININE - SERUM 1.1 mg/dL (0.6-1.3); POTASSIUM - SERUM 3.4 mmol/L (3.5-5.1)
--- NOTE | 2018-09-10 10:30 | NUR ---
PT RECEIVED VIA STRETCHER FROM [employer]ATTOO IDENTIFIER FOR RECOVERY. PT DROWSY BUT AROUSES TO VERBAL STIMULI. HR NSR RATE 86, BP 150/60, O2 SAT 98 ON 2L/NC. 6 FR EXOCELE TO R GROIN, DRESSING CDI NO BLEEDING OR SWELLING NOTED. R PEDAL PULSES PALPABABLE. PT INSTRUCTED TO KEEP HEAD ON PILLOW AND LEG STRAIGHT, PT VERBALIZES UNDERSTANDING. PT DENIES CHEST PAIN OR NAUSEA. CALL LIGHT IN REACH, AT BEDSIDE.
--- NOTE | 2018-09-10 10:46 | NUR ---
PT RESTING QUIETLY, VSS. R GROIN SOFT NO BLEEDING OR SWELLING NOTED. PEDAL PULSES PALPABLE. CALL LIGHT IN REACH
--- NOTE | 2018-09-10 11:30 | NUR ---
PT SLEEPING COMFORTABLY, R GROIN SOFT NO BLEEDING OR HEMATOMA NOTED. DRESSING CDI. CALL LIGHT IN REACH, AT BEDSIDE
--- NOTE | 2018-09-10 12:04 | NUR ---
PT STILL SLEEPING, VSS, R GROIN SOFT NO BLEEDING OR HEMATOMA. PEDAL PULSES PALPABLE. CALL LIGHT IN REACH. DR SERRANO IN AND SPOKE W PT AND REGARDING PROCEDURE RESULTS AND PLAN OF CARE.
--- NOTE | 2018-09-10 12:33 | NUR ---
PT REMAINS SLEEPING, R GROIN SOFT NO BLEEDING OR SWELLING NOTED. DRESSING CDI. PEDAL PULSES PALPABLE. VSS. CALL LIGHT IN REACH.
--- NOTE | 2018-09-10 13:02 | NUR ---
R GROIN SOFT, DRESSING REMAINS CDI NO BLEEDING OR SWELLING NOTED. PEDAL PULSES PALPABLE. CALL LIGHT IN REACH, AT BEDSIDE.
--- NOTE | 2018-09-10 13:37 | NUR ---
PT MORE AWAKE, O2 REMOVED. GROIN REMAINS SOFT NO BLEEDING OR SWELLING NOTED. PEDAL PULSES PALPABLE. OFFERED SANDWICH REFUSED AT THIS TIME. COLA GIVEN. CALL LIGHT IN REACH
--- NOTE | 2018-09-10 14:06 | NUR ---
HOB ELEVATED, PT TOLERATING LIQUIDS W/O NAUSEA. R GROIN REMAINS SOFT, DRESSING CDI NO BLEEDING OR SWELLING NOTED. PEDAL PULSES PALPABLE. PT DENIES CHEST PAIN OR DISCOMFORT. CALL LIGHT IN REACH
--- NOTE | 2018-09-10 14:20 | NUR ---
IV REMOVED W CATH INTACT, MONITORS REMOVED. PT UP TO DRESS FOR DISCHARGE
--- NOTE | 2018-09-10 14:35 | NUR ---
DISCHARGE TEACHING COMPLETED W PT, SHE VERBALIZED UNDERSTANDING. PT DISCHARGED TO PRIVATE VEHICLE VIA WC
--- NOTE | 2018-09-11 11:54 | OP ---
PATIENT NAME: ROCHELLE ALCANTARA MEDICAL RECORD: [id number] :48 LOCATION:D.CAT ADMISSION DATE: SURGEON: SAM SERRANO MD DATE OF OPERATION: 09/10/2018 PROCEDURES: 1. PTCA stent RCA. 2. Intravascular ultrasound. 3. Left heart catheterization. 4. Selective coronary angiography. 5. Left ventriculogram. INDICATION: Angina and coronary artery disease. PROCEDURE IN DETAIL: After informed consent was obtained and after a detailed description of risks, benefits as well as alternative therapies, the patient elected to proceed with angiogram and angioplasty. The right femoral area was prepped and draped in normal sterile fashion. The right femoral artery was cannulated via modified Seldinger technique with placement of 6-[place] sheath. All catheters exchanged through this sheath. FINDINGS: Left ventriculogram was performed in standard 30-degree JOYNER view, reveals good cardiac wall motion throughout all segments. Overall ejection fraction estimated 60%. SELECTIVE CORONARY ANGIOGRAPHY: 1. Left main is with no significant angiographic disease. 2. Left anterior descending has moderate irregularities, but no flow-limiting stenosis and the previously placed stents are widely patent. 3. Left circumflex has moderate irregularities, but no flow-limiting stenosis. 4. The right coronary artery has previously placed stents. Intravascular ultrasound reveals there is 80% in-stent restenosis. It is a combination of in-stent restenosis and poor apposition. PTCA STENT OF THE RCA: A 3.5 balloon was taken throughout the stented area at high pressure up to 21 atmospheres. Stenting was undertaken distally with a 3.0 x 12 mm Integrity stent. Result was 0% residual stenosis. OVERALL IMPRESSION: Successful PTCA stent of the RCA going from greater than 80% initial stenosis to 0% residual. TRANSINT:[id number] Voice Confirmation ID: [id number] DOCUMENT ID: [id number] SAM SERRANO MD at 1159 CC: [id number] DICTATION DATE: 09/10/18 1022 PHOTOENGRAVING PROOFER APPRENTICE: 09/10/18 1029 DEP CLI 09/10/18 [place] [id number]
== END 2018-09-10 14:35 | disposition home or self-care (01) ==
LOC: D.CATH 08:11
PROVIDERS: ATTEND Internal Medicine Interventional Cardiology
DX: I25.119 Atherosclerotic heart disease of native coronary artery with unspecified angina pectoris (principal); T82.855A Stenosis of coronary artery stent, initial encounter; Z01.812 Encounter for preprocedural laboratory examination

== ENCOUNTER → 2018-09-30 12:28 | Outpatient (CLI) | payer MEDICARE, OTHER ==
[2018-09-10 08:40] VITALS: BMI 18.7
[~2018-09-30 12:28] MED LIST changes: +ATIVAN0.5 MG PO; +INDERAL LA60 MG PO; +PROZAC40 MG PO
== END | disposition home or self-care (01) ==
LOC: D.RAD 09-15 13:00
PROVIDERS: ATTEND Neurological Surgery
DX: R13.10 Dysphagia, unspecified (principal)

== ENCOUNTER → 2018-10-17 08:59 | Outpatient (CLI) | payer MEDICARE, OTHER ==
[2018-09-10 08:40] VITALS: BMI 18.7
== END | disposition home or self-care (01) ==
LOC: D.RAD 09-17 09:30 → D.CT 09-17 10:30 → D.RAD 08:59
PROVIDERS: ATTEND Neurological Surgery
DX: M54.12 Radiculopathy, cervical region (principal)